=== PATIENT | female | born 2000 | race Caucasian/White ===

== ENCOUNTER 2022-03-19 12:52 | Inpatient (IN) ==
[2022-03-19] MEDS ORDERED: Ondansetron 4 MG/2 ML VIAL IVP PRN ×2 (13:13→17:42)
[2022-03-19] MEDS ORDERED: Metoclopramide 10 MG/2 ML VIAL IVP PRN (13:13)
[2022-03-19] MEDS ORDERED: Naloxone 0.4 MG/ML INJ IVP PRN ×2 (13:13→17:42)
[2022-03-19] MEDS ORDERED: Lidocaine 1% 20 ML MDV INFILT PRN (13:13)
[2022-03-19] MEDS ORDERED: miSOPROStoL 25 MCG TABLET PO PRN (13:13)
[2022-03-19] MEDS ORDERED: Famotidine 20 MG/2 ML VIAL IVP PRN (13:13)
[2022-03-19] MEDS ORDERED: Azithromycin 500 MG in 0.9 % Sodium Chloride 250 ML IVPB PRN (13:13)
[2022-03-19] MEDS ORDERED: Oxytocin 30 UNIT/503 ML BAG IVC SCH (13:15)
[2022-03-19] MEDS ORDERED: Ringers Solution, Lactated 1,000 ML IVC SCH (13:15)
[2022-03-19 14:05] LABS: Basophils # 0.1 K/mcL (0.0-0.2); Basophils % 0.3 %; Eosinophils # 0.1 K/mcL (0.0-0.6); Eosinophils % 0.3 %; Hematocrit 28.7 % (35.3-44.9); Hemoglobin 9.5 g/dL (11.5-15.4); Immature Granulocytes % 1.3 % (0-4); Lymphocytes # 2.3 K/mcL (0.6-4.6); Lymphocytes % 13.9 %; Mean Corpuscular HGB Conc 33.1 g/dL (31.6-35.5); Mean Corpuscular Hemoglobin 27.7 pg (28.0-33.3); Mean Corpuscular Volume 83.7 fL (83.0-100.0); Mean Platelet Volume 10.5 fL (9.4-12.4); Monocytes # 0.6 K/mcL (0.0-1.3); Monocytes % 3.9 %; Platelet Count 279 K/mcL (140-400); Red Blood Count 3.43 M/mcL (3.82-4.97); Red Cell Distribution Width 12.2 % (11.5-14.5); Segmented Neutrophils % 80.3 %; White Blood Count 16.2 K/mcL (4.3-11.1)
[2022-03-19 14:14] LABS: Amphetamine Screen,Urine Negative ng/mL (Cutoff=1000); Barbiturate Screen,Urine Negative ng/mL (Cutoff=200); Benzodiazepines Screen,Urine Negative ng/mL (Cutoff=200); Cannabinoid Screen,Urine Negative ng/mL (Cutoff = 50); Cocaine Screen,Urine Negative ng/mL (Cutoff= 300); Opiate Screen,Urine Negative ng/mL (Cutoff=300); Phencyclidine Screen,Urine Negative ng/mL (Cutoff=25)
[2022-03-19] MEDS ORDERED: *HR* FentaNYL (PF) 100 MCG/2 ML VIAL EP ONE (17:42)
[2022-03-19] MEDS ORDERED: EPHEDrine 50 MG/ML VIAL IVP PRN (17:42)
[2022-03-19] MEDS ORDERED: Ropivacaine/PF 0.2% 20 ML VIAL EP ONE (17:42)
[2022-03-19] MEDS ORDERED: Epidural Premix (fent/bupiv) 110 ML EP SCH (17:45)
[2022-03-19] MEDS: *HR* Nalbuphine 10 MG/ML AMPUL IV PRN (19:36)
[2022-03-20] MEDS: *HR* Nalbuphine 10 MG/ML AMPUL IV PRN (00:37)
[2022-03-20] MEDS ORDERED: Ibuprofen 600 MG TABLET PO ONE (09:06)
[2022-03-20] MEDS ORDERED: Ondansetron ODT 4 MG TAB.RAPDIS SL PRN ×2 (09:07→10:44)
[2022-03-20] MEDS ORDERED: Benzocaine/Menthol 56 GM AEROSOL SPRAY TP PRN ×2 (09:07→10:44)
[2022-03-20] MEDS ORDERED: Lanolin 7 G OINT...G. TP PRN ×2 (09:07→10:44)
[2022-03-20] MEDS ORDERED: OXYTOCIN/RINGERS LACTATE 10 UNIT/166.6 ML BAG IVC ONE ×2 (09:07→10:44)
[2022-03-20] MEDS ORDERED: Acetaminophen 325 MG TABLET PO SCH (09:15)
[2022-03-20] MEDS ORDERED: Oxytocin 30 UNIT/503 ML BAG IVC SCH ×2 (09:15→10:44)
[2022-03-20] MEDS ORDERED: Ibuprofen 600 MG TABLET PO SCH (15:00)
[2022-03-20] MEDS: Ibuprofen 600 MG TABLET PO SCH ×2 (16:34→22:42)
[2022-03-20] MEDS: Acetaminophen 325 MG TABLET PO SCH (20:40)
[2022-03-21] MEDS: Acetaminophen 325 MG TABLET PO SCH ×2 (03:46→09:45)
[2022-03-21 04:28] VITALS: O2SAT 98
[2022-03-21 08:51] VITALS: BP 113/72; PULSE 86; TEMP 97.9
[2022-03-21] MEDS ORDERED: Prenatal Vit/FA 1 EACH TABLET PO SCH ×2 (09:00)
[2022-03-21] MEDS: Ibuprofen 600 MG TABLET PO SCH (09:45)
== END 2022-03-21 11:57 | disposition home or self-care (01) | DRG 560 ==
LOC: 1NENULAB 12:52 → 1NENUOBS 03-20 10:44
PROVIDERS: ADMIT Registered Nurse; ATTEND Registered Nurse

== ENCOUNTER 2022-05-09 15:20 | Inpatient (IN) ==
[2022-05-09 17:21] LABS: Amorphous Sediment,Urine Few per hpf (None-Few); Bacteria,Urine Few per hpf (None-Few); Bilirubin,Urine Moderate (Negative); Blood,Urine Negative (Negative); Clarity,Urine Turbid (Clear); Color,Urine Dark-Yellow (Yellow); Glucose,Urine (UA) Normal (Normal); Ketones,Urine 80 mg/dL (Negative); Leukocyte Esterase,Urine Negative (Negative); Mucus,Urine Few per lpf (None-Few); Nitrite,Urine Negative (Negative); PH,Urine 5.5 pH Units (5.0-8.0); Protein,Urine Negative (Neg-Trace); RBC,Urine 0-3 per hpf (0-3); Specific Gravity,Urine 1.012 (1.010-1.025); Squamous Epithelial Cell,Urine Few per hpf (None-Few); Urobilinogen,Urine Normal (Normal); WBC,Urine 0-3 per hpf (0-3)
[2022-05-09] MEDS ORDERED: Ketorolac 30 MG/ML VIAL IVP ONE (18:38)
[2022-05-09] MEDS ORDERED: 0.9 % Sodium Chloride 1,000 ML IVC ONE (18:38)
[2022-05-09 19:17] LABS: Basophils % 0.5 %; Eosinophils # 0.1 K/mcL (0.0-0.6); Eosinophils % 0.7 %; Hematocrit 36.1 % (35.3-44.9); Hemoglobin 11.5 g/dL (11.5-15.4); Immature Granulocytes % 0.2 % (0-4); Lymphocytes % 11.7 %; Mean Corpuscular HGB Conc 31.9 g/dL (31.6-35.5); Mean Corpuscular Hemoglobin 26.6 pg (28.0-33.3); Mean Corpuscular Volume 83.6 fL (83.0-100.0); Mean Platelet Volume 10.1 fL (9.4-12.4); Monocytes # 0.6 K/mcL (0.0-1.3); Monocytes % 7.6 %; Neutrophils # 6.7 K/mcL (1.6-8.9); Platelet Count 306 K/mcL (140-400); Red Blood Count 4.32 M/mcL (3.82-4.97); Red Cell Distribution Width 14.1 % (11.5-14.5); Segmented Neutrophils % 79.3 %; White Blood Count 8.5 K/mcL (4.3-11.1)
[2022-05-09 19:48] LABS: Alanine Aminotransferase 407 Units/L (7-52); Albumin 4.3 g/dL (3.5-5.7); Albumin/Globulin Ratio 1.4 (1.1-2.2); Alkaline Phosphatase 267 Units/L (34-104); Aspartate Amino Transferase 152 Units/L (13-39); BUN/Creatinine Ratio 15 (6-26); Bilirubin,Direct 2.7 mg/dL (0.0-0.2); Bilirubin,Indirect 1.2 mg/dL (0.0-1.0); Bilirubin,Total 3.9 mg/dL (0.3-1.0); Blood Urea Nitrogen 9 mg/dL (6-20); Calcium 9.7 mg/dL (8.6-10.3); Carbon Dioxide 26 mEq/L (23-29); Chloride 102 mEq/L (98-107); Glucose 89 mg/dL (70-105); Lipase > 1800 Units/L (11-82); Osmolality,Calculated 286 (280-300); Potassium 3.6 mEq/L (3.5-5.1); Sodium 139 mEq/L (136-145); Total Protein 7.3 g/dL (6.4-8.9)
[2022-05-09] MEDS ORDERED: *HR* HYDROmorphone (PF) 1 MG/ML SYRINGE IVP ONE (20:22)
[2022-05-09] MEDS ORDERED: Ondansetron 4 MG/2 ML VIAL IVP ONE (20:23)
[2022-05-09] MEDS ORDERED: Iopamidol - 370 500 ML MLS IVP ONE (20:24)
[2022-05-09] MEDS ORDERED: *HR* HYDROmorphone 2 MG/ML SYRINGE IVP ONE (22:51)
[2022-05-10] MEDS ORDERED: 0.9 % Sodium Chloride 1,000 ML IVC ONE (00:11)
[2022-05-10] MEDS ORDERED: Naloxone 0.4 MG/ML INJ IVP PRN (00:25)
[2022-05-10] MEDS ORDERED: Ondansetron 4 MG/2 ML VIAL IVP PRN ×2 (00:25→01:46)
[2022-05-10 00:54] LABS: Triglycerides 69 mg/dL (< 150)
[2022-05-10] MEDS: Ringers Solution, Lactated 1,000 ML IVC SCH ×4 (01:35→20:25)
[2022-05-10 01:45] LABS: Hematocrit 34.6 % (35.3-44.9); Hemoglobin 10.9 g/dL (11.5-15.4); Mean Corpuscular HGB Conc 31.5 g/dL (31.6-35.5); Mean Corpuscular Hemoglobin 26.6 pg (28.0-33.3); Mean Corpuscular Volume 84.4 fL (83.0-100.0); Mean Platelet Volume 9.7 fL (9.4-12.4); Platelet Count 287 K/mcL (140-400); Red Cell Distribution Width 14.2 % (11.5-14.5); White Blood Count 8.8 K/mcL (4.3-11.1)
[2022-05-10 01:54] LABS: Prothrombin Time 11.6 Seconds (9.4-12.1)
[2022-05-10 02:04] LABS: Alanine Aminotransferase 320 Units/L (7-52); Albumin 3.7 g/dL (3.5-5.7); Albumin/Globulin Ratio 1.2 (1.1-2.2); Alkaline Phosphatase 251 Units/L (34-104); Aspartate Amino Transferase 109 Units/L (13-39); BUN/Creatinine Ratio 12 (6-26); Bilirubin,Direct 2.6 mg/dL (0.0-0.2); Bilirubin,Indirect 1.2 mg/dL (0.0-1.0); Bilirubin,Total 3.8 mg/dL (0.3-1.0); Blood Urea Nitrogen 7 mg/dL (6-20); Calcium 8.5 mg/dL (8.6-10.3); Carbon Dioxide 20 mEq/L (23-29); Chloride 106 mEq/L (98-107); Glucose 76 mg/dL (70-105); Magnesium 1.7 mg/dL (1.6-2.6); Osmolality,Calculated 281 (280-300); Phosphorous 4.3 mg/dL (2.7-4.5); Potassium 3.7 mEq/L (3.5-5.1); Sodium 137 mEq/L (136-145); Total Protein 6.7 g/dL (6.4-8.9)
[2022-05-10] MEDS ORDERED: Calcium Gluconate 1gm/50mL 1 GM/50 ML BAG IVPB ONE (05:17)
[2022-05-10] MEDS ORDERED: D5% in Water 1,000 ML IVC PRN (05:33)
[2022-05-10] MEDS ORDERED: Dextrose Gel 15 GM/37.5 ML TUBE PO PRN (05:33)
[2022-05-10] MEDS ORDERED: *HR* Dextrose 50 % in Water (Syg) 50 ML SYRINGE IVP PRN (05:33)
[2022-05-10] MEDS ORDERED: Ketorolac 30 MG/ML VIAL IVP SCH (06:00)
[2022-05-10] MEDS: cefTRIAXone 1,000 MG in 0.9 % Sodium Chloride 10 ML IVP SCH (07:58)
[2022-05-10] MEDS: *HR* HYDROmorphone (PF) 1 MG/ML SYRINGE IVP PRN ×2 (07:59→15:52)
[2022-05-10] MEDS: Pantoprazole 40 MG VIAL IVP SCH (11:32)
[2022-05-10] MEDS: Ketorolac 30 MG/ML VIAL IVP PRN ×2 (12:02→20:24)
[2022-05-10] MEDS: Dextrose Gel 15 GM/37.5 ML TUBE PO PRN ×2 (13:06→13:43)
[2022-05-11] MEDS: *HR* HYDROmorphone (PF) 1 MG/ML SYRINGE IVP PRN (00:41)
[2022-05-11] MEDS: Ketorolac 30 MG/ML VIAL IVP PRN ×3 (05:48→18:49)
[2022-05-11 08:40] LABS: Basophils % 0.4 %; Eosinophils # 0.1 K/mcL (0.0-0.6); Eosinophils % 1.3 %; Hematocrit 31.2 % (35.3-44.9); Immature Granulocytes % 0.4 % (0-4); Lymphocytes # 1.3 K/mcL (0.6-4.6); Mean Corpuscular HGB Conc 32.1 g/dL (31.6-35.5); Mean Corpuscular Hemoglobin 26.7 pg (28.0-33.3); Mean Corpuscular Volume 83.2 fL (83.0-100.0); Mean Platelet Volume 9.9 fL (9.4-12.4); Monocytes # 0.8 K/mcL (0.0-1.3); Monocytes % 7.6 %; Neutrophils # 7.7 K/mcL (1.6-8.9); Platelet Count 262 K/mcL (140-400); Red Blood Count 3.75 M/mcL (3.82-4.97); Red Cell Distribution Width 14.6 % (11.5-14.5); Segmented Neutrophils % 77.3 %
[2022-05-11 09:18] LABS: Alanine Aminotransferase 166 Units/L (7-52); Albumin 3.3 g/dL (3.5-5.7); Albumin/Globulin Ratio 1.3 (1.1-2.2); Alkaline Phosphatase 203 Units/L (34-104); Aspartate Amino Transferase 30 Units/L (13-39); BUN/Creatinine Ratio 9 (6-26); Bilirubin,Direct 0.4 mg/dL (0.0-0.2); Bilirubin,Indirect 0.6 mg/dL (0.0-1.0); Blood Urea Nitrogen 5 mg/dL (6-20); Calcium 8.4 mg/dL (8.6-10.3); Carbon Dioxide 27 mEq/L (23-29); Chloride 105 mEq/L (98-107); Globulin 2.5 g/dL (2.4-3.5); Glucose 86 mg/dL (70-105); Lipase 702 Units/L (11-82); Magnesium 1.5 mg/dL (1.6-2.6); Osmolality,Calculated 283 (280-300); Phosphorous 3.2 mg/dL (2.7-4.5); Potassium 3.2 mEq/L (3.5-5.1); Sodium 138 mEq/L (136-145); Total Protein 5.8 g/dL (6.4-8.9)
[2022-05-11] MEDS: Pantoprazole 40 MG VIAL IVP SCH (09:35)
[2022-05-11] MEDS: cefTRIAXone 1,000 MG in 0.9 % Sodium Chloride 10 ML IVP SCH (09:35)
[2022-05-11] MEDS ORDERED: Ringers Solution, Lactated 1,000 ML IVC SCH ×2 (10:45→17:28)
[2022-05-11] MEDS ORDERED: Lidocaine HCL 4 ML Topical Solution (Laryng-O-Jet Kit Sterile Pak) TP ONE (12:47)
[2022-05-11] MEDS ORDERED: *HR* Propofol 200 MG/20 ML VIAL IVP ONE (12:54)
[2022-05-11] MEDS ORDERED: *HR* Rocuronium Bromide 50 MG/5 ML VIAL ONE (12:55)
[2022-05-11] MEDS ORDERED: Lidocaine -MPF 2% 2 ML VIAL ONE (12:55)
[2022-05-11] MEDS ORDERED: Sugammadex Sodium 200 MG/2 ML VIAL IV ONE (12:55)
[2022-05-11] MEDS ORDERED: *HR* FentaNYL (PF) 100 MCG/2 ML VIAL ONE (12:55)
[2022-05-11] MEDS ORDERED: Ondansetron 4 MG/2 ML VIAL ONE (12:55)
[2022-05-11] MEDS ORDERED: *HR* Midazolam HCl 2 MG/2 ML VIAL ONE (12:55)
[2022-05-11] MEDS ORDERED: *HR* Succinylcholine 200 MG/10 ML VIAL IVP ONE (12:55)
[2022-05-11] MEDS ORDERED: *HR* HYDROMORPHONE 2 MG/ML VIAL ONE (12:56)
[2022-05-11] MEDS ORDERED: *HR* Labetalol 20 MG/4 ML SYRINGE IVP PRN ×2 (13:56→17:28)
[2022-05-11] MEDS ORDERED: Famotidine 20 MG/2 ML VIAL IVP ONE (13:56)
[2022-05-11] MEDS ORDERED: *HR* OxyCODONE Immed Rel 5 MG TABLET PO PRN ×2 (13:56→17:28)
[2022-05-11] MEDS ORDERED: Promethazine 6.25 MG in Water for inj. (sterile) 20 ML IVPB PRN ×2 (13:56→17:28)
[2022-05-11] MEDS ORDERED: *HR* HYDROmorphone (PF) 1 MG/ML SYRINGE IVP PRN ×3 (13:56→17:28)
[2022-05-11] MEDS ORDERED: *HR* HYDROmorphone 2 MG TABLET PO PRN ×2 (13:56→17:28)
[2022-05-11] MEDS ORDERED: Acetaminophen IV 1,000 MG/100 ML BAG IVPB ONE ×2 (13:56→14:26)
[2022-05-11] MEDS ORDERED: Scopolamine Patch 1.5 MG PATCH.TD72 TD ONE (13:56)
[2022-05-11] MEDS ORDERED: Ondansetron 4 MG/2 ML VIAL IVP PRN ×3 (13:56→17:28)
[2022-05-11] MEDS ORDERED: Pregabalin 75 MG CAPSULE PO ONE ×2 (13:56→17:28)
[2022-05-11] MEDS ORDERED: Ketorolac 30 MG/ML VIAL IVP PRN ×2 (13:56→17:28)
[2022-05-11] MEDS ORDERED: Iopamidol - 300 50 ML VIAL ONE (14:24)
[2022-05-11] MEDS ORDERED: Ketorolac 30 MG/ML VIAL ONE (14:26)
[2022-05-11] MEDS ORDERED: Scopolamine Patch 1.5 MG PATCH.TD72 ONE (14:28)
[2022-05-11] MEDS ORDERED: Famotidine 20 MG/2 ML VIAL ONE (14:28)
[2022-05-11] MEDS ORDERED: Naloxone 0.4 MG/ML INJ IVP PRN (17:28)
[2022-05-11] MEDS ORDERED: D5% in Water 1,000 ML IVC PRN (17:28)
[2022-05-11] MEDS ORDERED: *HR* Dextrose 50 % in Water (Syg) 50 ML SYRINGE IVP PRN (17:28)
[2022-05-11] MEDS ORDERED: Dextrose Gel 15 GM/37.5 ML TUBE PO PRN ×2 (17:28)
[2022-05-11] MEDS: *HR* OxyCODONE Immed Rel 5 MG TABLET PO PRN (22:36)
[2022-05-12 02:34] LABS: Basophils % 0.2 %; Hemoglobin 9.5 g/dL (11.5-15.4); Immature Granulocytes % 0.3 % (0-4); Lymphocytes % 10.3 %; Mean Corpuscular HGB Conc 31.7 g/dL (31.6-35.5); Mean Corpuscular Hemoglobin 26.3 pg (28.0-33.3); Mean Corpuscular Volume 83.1 fL (83.0-100.0); Mean Platelet Volume 10.1 fL (9.4-12.4); Monocytes # 0.7 K/mcL (0.0-1.3); Monocytes % 7.1 %; Neutrophils # 8.1 K/mcL (1.6-8.9); Platelet Count 275 K/mcL (140-400); Red Blood Count 3.61 M/mcL (3.82-4.97); Red Cell Distribution Width 14.4 % (11.5-14.5); Segmented Neutrophils % 82.1 %; White Blood Count 9.8 K/mcL (4.3-11.1)
[2022-05-12 02:53] LABS: Alanine Aminotransferase 152 Units/L (7-52); Albumin 3.6 g/dL (3.5-5.7); Albumin/Globulin Ratio 1.2 (1.1-2.2); Alkaline Phosphatase 182 Units/L (34-104); Aspartate Amino Transferase 54 Units/L (13-39); BUN/Creatinine Ratio 8 (6-26); Bilirubin,Direct 0.4 mg/dL (0.0-0.2); Bilirubin,Indirect 0.4 mg/dL (0.0-1.0); Bilirubin,Total 0.8 mg/dL (0.3-1.0); Blood Urea Nitrogen 4 mg/dL (6-20); Calcium 8.6 mg/dL (8.6-10.3); Carbon Dioxide 26 mEq/L (23-29); Chloride 105 mEq/L (98-107); Glucose 100 mg/dL (70-105); Lipase 135 Units/L (11-82); Osmolality,Calculated 283 (280-300); Potassium 3.9 mEq/L (3.5-5.1); Sodium 138 mEq/L (136-145); Total Protein 6.6 g/dL (6.4-8.9)
[2022-05-12] MEDS: *HR* OxyCODONE Immed Rel 5 MG TABLET PO PRN ×2 (05:23→10:08)
[2022-05-12] MEDS: Ketorolac 30 MG/ML VIAL IVP PRN ×3 (06:34→21:19)
[2022-05-12] MEDS ORDERED: Acetaminophen 325 MG TABLET PO PRN (09:47)
[2022-05-12] MEDS ORDERED: Ringers Solution, Lactated 1,000 ML IVC SCH (09:49)
[2022-05-12] MEDS: Pantoprazole 40 MG VIAL IVP SCH (10:10)
[2022-05-12] MEDS ORDERED: Ibuprofen 800 MG TABLET PO PRN (12:38)
[2022-05-13] MEDS: Ketorolac 30 MG/ML VIAL IVP PRN (03:48)
[2022-05-13 07:40] VITALS: BP 112/75; PULSE 72; TEMP 98.8; O2SAT 95
[2022-05-13] MEDS: Pantoprazole 40 MG VIAL IVP SCH (10:23)
== END 2022-05-13 10:30 | disposition home or self-care (01) | DRG 263 ==
LOC: EMEROOARM 15:20 → 3ANU 15:20 → SUATTDRO 05-10 00:20 → 3ANU 05-10 01:00 → SUATTDRO 05-11 15:12
PROVIDERS: ADMIT Internal Medicine; ATTEND Family Medicine